=== PATIENT | female | born 1955 | race Caucasian/White ===

== ENCOUNTER 2017-10-04 09:17 | Emergency (ER) | payer MEDICAID ==
[~2017-10-04] VITALS: Ht 182.9 cm; Wt 106.6 kg
[~2017-10-04 09:17] MED LIST: AMOX875 PO; KETO10 PO; METPRE4DP PO; Pepcid20 MG PO; TROSPIUM CHLORI20 MG
[2017-10-04] MEDS ORDERED: ASPI325 PO (09:44)
[2017-10-04] MEDS ORDERED: Zofran4 MG PO (10:00)
== END 2017-10-04 10:07 | disposition home or self-care (01) ==
LOC: ER 09:17
DX: R42 Dizziness and giddiness (principal); R11.2 Nausea with vomiting, unspecified; F17.200 Nicotine dependence, unspecified, uncomplicated; Z88.0 Allergy status to penicillin; Z79.899 Other long term (current) drug therapy; Z79.82 Long term (current) use of aspirin
CPT/HCPCS: 99282

== ENCOUNTER 2018-07-28 22:03 | Emergency (ER) | payer OTHER ==
[~2018-07-28] VITALS: Ht 182.9 cm; Wt 106.1 kg
[~2018-07-28 22:03] MED LIST changes: +ASPI325 PO; +Zofran4 MG PO
== END 2018-07-29 05:30 | disposition left against medical advice (07) ==
LOC: ER 22:03
DX: Z53.21 Procedure and treatment not carried out due to patient leaving prior to being seen by health care provider (principal)
CPT/HCPCS: 72080; 99281-25

== ENCOUNTER → 2020-04-06 | Outpatient (CLI) | payer OTHER | LOC: LAB 08:55 | DX: N39.0 Urinary tract infection, site not specified (principal); R82.998 Other abnormal findings in urine | CPT/HCPCS: 87086 ==

== ENCOUNTER → 2020-08-25 | Outpatient (CLI) | payer OTHER | END | disposition home or self-care (01) | LOC: LAB SHORT 13:18 | DX: R30.0 Dysuria (principal) | CPT/HCPCS: 87077; 87086; 87186 ==

== ENCOUNTER → 2021-10-24 | Outpatient (CLI) | payer OTHER | LOC: LAB SHORT 15:00 → LAB 15:00 | DX: N39.0 Urinary tract infection, site not specified (principal) | CPT/HCPCS: 87077; 87086; 87186 ==

== ENCOUNTER → 2022-01-02 | Outpatient (CLI) | payer OTHER | END | disposition home or self-care (01) | LOC: LAB 13:10 → LAB SHORT 13:10 | DX: R30.0 Dysuria (principal) | CPT/HCPCS: 87077; 87086; 87186 ==

== ENCOUNTER 2022-03-24 09:53 | Day surgery (SDC) | payer OTHER | END 2022-03-24 22:52 | disposition home or self-care (01) | LOC: WOUND 09:53 | DX: L97.218 Non-pressure chronic ulcer of right calf with other specified severity (principal); I87.2 Venous insufficiency (chronic) (peripheral); I73.9 Peripheral vascular disease, unspecified | CPT/HCPCS: A9270; G0463 ==

== ENCOUNTER 2022-04-11 01:48 | Day surgery (SDC) | payer OTHER | END 2022-04-11 23:06 | disposition home or self-care (01) | LOC: WOUND 01:48 | DX: L97.218 Non-pressure chronic ulcer of right calf with other specified severity (principal); I73.9 Peripheral vascular disease, unspecified | CPT/HCPCS: A9270 ==

== ENCOUNTER 2022-04-25 02:06 | Day surgery (SDC) | payer OTHER | END 2022-04-25 22:45 | disposition home or self-care (01) | LOC: WOUND 02:06 | DX: L97.212 Non-pressure chronic ulcer of right calf with fat layer exposed (principal); I73.9 Peripheral vascular disease, unspecified | CPT/HCPCS: A9270; G0463 ==

== ENCOUNTER 2022-05-09 01:31 | Day surgery (SDC) | payer OTHER | END 2022-05-09 22:47 | disposition home or self-care (01) | LOC: WOUND 01:31 | DX: L97.212 Non-pressure chronic ulcer of right calf with fat layer exposed (principal); I73.9 Peripheral vascular disease, unspecified | CPT/HCPCS: A9270; G0463 ==

== ENCOUNTER 2022-05-23 01:16 | Day surgery (SDC) | payer OTHER | END 2022-05-23 22:47 | disposition home or self-care (01) | LOC: WOUND 01:16 | DX: I87.2 Venous insufficiency (chronic) (peripheral) (principal); L97.212 Non-pressure chronic ulcer of right calf with fat layer exposed | CPT/HCPCS: G0463 ==

== ENCOUNTER → 2022-05-30 | Outpatient (CLI) | payer OTHER | LOC: PLD 10:47 → LAB SHORT 10:47 | DX: D48.5 Neoplasm of uncertain behavior of skin (principal) | CPT/HCPCS: 88305 ==

== ENCOUNTER → 2024-01-11 | Outpatient (CLI) | payer OTHER | END | disposition home or self-care (01) | LOC: LAB SHORT 10:36 → LAB 10:36 | DX: N39.0 Urinary tract infection, site not specified (principal) | CPT/HCPCS: 87077; 87086; 87186 ==

== ENCOUNTER → 2024-04-23 | Outpatient (CLI) | payer OTHER | END | disposition home or self-care (01) | LOC: LAB 11:19 → LAB SHORT 11:19 | DX: R82.90 Unspecified abnormal findings in urine (principal) | CPT/HCPCS: 87086 ==

== ENCOUNTER 2025-01-29 20:24 | Emergency (ER) | payer OTHER ==
[~2025-01-29] VITALS: Ht 182.9 cm; Wt 86.2 kg
[2025-01-29 21:36] LABS: BASOPHILS ABSOLUTE AUTO 0.01 K/mm3 (0.00-0.23); BASOPHILS PERCENT AUTO 0 % (0-2); EOSINOPHILS ABSOLUTE AUTO 0.02 K/mm3 (0.00-0.68); EOSINOPHILS PERCENT AUTO 0 % (0-6); Hematocrit 30.6 % (33.0-51.0); Hemoglobin 10.9 g/dL (11.5-16.0); IMMATURE GRAN ABSOLUTE AUTO 0.06 K/mm3 (0.00-0.10); IMMATURE GRAN PERCENT AUTO 1 % (0-1); LYMPHOCYTES ABSOLUTE AUTO 1.70 K/mm3 (0.84-5.20); LYMPHOCYTES PERCENT AUTO 15 % (21-46); MONOCYTES ABSOLUTE AUTO 0.62 K/mm3 (0.16-1.47); MONOCYTES PERCENT AUTO 5 % (4-13); Mean Corpuscular HGB Conc 35.6 g/dL (31.5-36.5); Mean Corpuscular Volume 105 fL (80-100); NEUTROPHILS ABSOLUTE AUTO 9.04 K/mm3 (1.96-9.15); NEUTROPHILS PERCENT AUTO 79 % (41-73); NRBC ABSOLUTE 0.00 K/mm3 (0.00-0.02); NRBC Auto 0.0 /100 WBC (0.0-0.2); Platelet Count 254 K/mm3 (150-400); RDW Coefficient Variation 12.9 % (11.7-14.2); RDW Standard Deviation 49.1 fL (35.1-46.3)
[2025-01-29 21:56] LABS: Alanine Aminotransfer (ALT/SGP 37.0 U/L (12-78); Albumin, Blood 3.7 g/dL (3.4-5.0); Albumin/Globulin Ratio 1.3 (0.8-1.8); Anion Gap 8.0 mmol/L (3-11); Aspartate Aminotrans (AST/SGOT 23.0 U/L (12-37); Bilirubin, Total 0.9 mg/dL (0.1-1.0); Blood Urea Nitrogen 7.0 mg/dL (8-24); CO2, Blood 26.0 mmol/L (21-32); Calcium, Blood 8.7 mg/dL (8.5-10.1); Chloride, Blood 99.0 mmol/L (98-108); Creatinine, Blood 1.01 mg/dL (0.40-1.00); Globulin, Blood 2.8 g/dL (2.2-4.0); Glucose, Blood 95.0 mg/dL (70-99); Potassium, Blood 3.7 mmol/L (3.5-5.5); Sodium, Blood 129.0 mmol/L (136-145); Total Protein, Blood 6.5 g/dL (6.4-8.2)
[2025-01-30 01:19] VITALS: BP 113/76
== END 2025-01-30 01:21 | disposition home or self-care (01) ==
LOC: ER 20:24
PROVIDERS: Student in an Organized Health Care Education/Training Program
DX: S63.602A Unspecified sprain of left thumb, initial encounter (principal); F17.200 Nicotine dependence, unspecified, uncomplicated; X58.XXXA Exposure to other specified factors, initial encounter; Z86.73 Personal history of transient ischemic attack (TIA), and cerebral infarction without residual deficits; Z79.82 Long term (current) use of aspirin; Z79.899 Other long term (current) drug therapy; Z88.0 Allergy status to penicillin
CPT/HCPCS: 80053; 85025; 99283

== ENCOUNTER 2025-02-11 00:36 | Emergency (ER) | payer OTHER ==
[~2025-02-11] VITALS: Ht 170.2 cm; Wt 97.5 kg
[2025-02-11] MEDS ORDERED: TRAZ50 PO (02:24)
[2025-02-11] MEDS ORDERED: TROSPIUM CHLORI20 M1 PO (02:25)
[2025-02-11] MEDS ORDERED: CYCL10 PO (02:25)
[2025-02-11] MEDS ORDERED: LISI20 PO (02:26)
[2025-02-11] MEDS ORDERED: ATORVASTATIN CA20 MG PO (02:27)
[2025-02-11 03:35] VITALS: BP 124/84
== END 2025-02-11 03:40 | disposition home or self-care (01) ==
LOC: ER 00:36
DX: R60.0 Localized edema (principal); F17.200 Nicotine dependence, unspecified, uncomplicated; Z88.1 Allergy status to other antibiotic agents; Z79.899 Other long term (current) drug therapy; Z79.82 Long term (current) use of aspirin; Z86.73 Personal history of transient ischemic attack (TIA), and cerebral infarction without residual deficits; Z88.0 Allergy status to penicillin
CPT/HCPCS: 93971; 99283-25

== ENCOUNTER 2025-02-25 22:16 | Inpatient (IN) | payer OTHER ==
[~2025-02-25] VITALS: Ht 170.2 cm; Wt 90.7 kg
[~2025-02-25 22:16] MED LIST changes: +ATORVASTATIN CA20 MG PO; +CYCL10 PO; +LISI20 PO; +TRAZ50 PO; +TROSPIUM CHLORI20 M1 PO
[2025-02-25 23:14] LABS: BASOPHILS ABSOLUTE AUTO 0.02 K/mm3 (0.00-0.23); BASOPHILS PERCENT AUTO 0 % (0-2); EOSINOPHILS ABSOLUTE AUTO 0.04 K/mm3 (0.00-0.68); EOSINOPHILS PERCENT AUTO 0 % (0-6); Hematocrit 29.4 % (33.0-51.0); Hemoglobin 10.2 g/dL (11.5-16.0); IMMATURE GRAN ABSOLUTE AUTO 0.04 K/mm3 (0.00-0.10); IMMATURE GRAN PERCENT AUTO 0 % (0-1); LYMPHOCYTES ABSOLUTE AUTO 1.54 K/mm3 (0.84-5.20); LYMPHOCYTES PERCENT AUTO 17 % (21-46); MONOCYTES ABSOLUTE AUTO 0.52 K/mm3 (0.16-1.47); MONOCYTES PERCENT AUTO 6 % (4-13); Mean Corpuscular HGB Conc 34.7 g/dL (31.5-36.5); Mean Corpuscular Volume 102 fL (80-100); NEUTROPHILS ABSOLUTE AUTO 7.14 K/mm3 (1.96-9.15); NEUTROPHILS PERCENT AUTO 77 % (41-73); NRBC ABSOLUTE 0.00 K/mm3 (0.00-0.02); NRBC Auto 0.0 /100 WBC (0.0-0.2); Platelet Count 200 K/mm3 (150-400); RDW Coefficient Variation 12.6 % (11.7-14.2); RDW Standard Deviation 47.5 fL (35.1-46.3)
[2025-02-25 23:34] LABS: Alanine Aminotransfer (ALT/SGP 23.0 U/L (12-78); Albumin, Blood 3.1 g/dL (3.4-5.0); Albumin/Globulin Ratio 1.1 (0.8-1.8); Anion Gap 8.0 mmol/L (3-11); Aspartate Aminotrans (AST/SGOT 14.0 U/L (12-37); Bilirubin, Total 0.9 mg/dL (0.1-1.0); Blood Urea Nitrogen 8.0 mg/dL (8-24); CO2, Blood 24.0 mmol/L (21-32); Calcium, Blood 8.6 mg/dL (8.5-10.1); Chloride, Blood 106.0 mmol/L (98-108); Creatinine, Blood 0.84 mg/dL (0.40-1.00); Globulin, Blood 2.8 g/dL (2.2-4.0); Glucose, Blood 112.0 mg/dL (70-99); Potassium, Blood 4.0 mmol/L (3.5-5.5); Sodium, Blood 134.0 mmol/L (136-145); Total Protein, Blood 5.9 g/dL (6.4-8.2)
[2025-02-26 00:21] LABS: Source, Urine Clean Catch
[2025-02-26 00:56] LABS: Bilirubin, Urine Neg (Neg); Glucose Qualitative, Urine Neg (Neg); Ketones, Urine Neg (Neg); Leukocyte Esterase, Urine Neg (Neg); Protein, Urine Neg (Neg); Specific Gravity, Urine 1.010 (1.003-1.022); Urobilinogen, Urine NORM (Normal)
[2025-02-26 00:59] LABS: Color, Urine Yellow (P-Yellow)
[2025-02-26] MEDS ORDERED: NS 1,000 ML IV SCH ×3 (01:05→04:05)
[2025-02-26 02:06] LABS: Magnesium, Blood 2.1 mg/dL (1.6-2.4); Phosphorus, Blood 2.5 mg/dL (2.5-4.9)
[2025-02-26 03:45] VITALS: BP 94/55
[2025-02-26] MEDS ORDERED: Ondansetron HCl 2 MG / ML 2ML Vial IV PRN (04:05)
[2025-02-26] MEDS ORDERED: FLU VACC TS2025-26(6MOS UP)/PF 45 MCG/0.5 ML SYRINGE IM SCH (04:05)
== END 2025-02-26 04:21 | disposition left against medical advice (07) | DRG 392 ==
LOC: ER 22:16 → ERHOLD 02-26 03:55
PROVIDERS: Emergency Medicine; Student in an Organized Health Care Education/Training Program; ADMIT Internal Medicine
DX: K52.9 Noninfective gastroenteritis and colitis, unspecified (principal); M19.90 Unspecified osteoarthritis, unspecified site; F17.210 Nicotine dependence, cigarettes, uncomplicated; E86.0 Dehydration; I95.9 Hypotension, unspecified; Z88.1 Allergy status to other antibiotic agents; Z88.5 Allergy status to narcotic agent; Z88.0 Allergy status to penicillin; Z79.899 Other long term (current) drug therapy; Z79.82 Long term (current) use of aspirin; Z86.73 Personal history of transient ischemic attack (TIA), and cerebral infarction without residual deficits; Z87.19 Personal history of other diseases of the digestive system; Z90.710 Acquired absence of both cervix and uterus; Z98.890 Other specified postprocedural states; Z53.29 Procedure and treatment not carried out because of patient's decision for other reasons; Z23 Encounter for immunization
CPT/HCPCS: 74177; 80053; 81003; 83605; 83690; 83735; 83880; 84100; 84484; 85025; 93005; 93010; 96360; 99285-25; J7030; Q9967